=== PATIENT | female | born 1955 | race Caucasian/White ===

== ENCOUNTER 2024-03-26 11:51 | Outpatient (CLI) | payer MEDICARE | END 2024-03-26 11:52 | disposition home or self-care (01) | LOC: CSHMAMMO 11:51 | PROVIDERS: ATTEND Student in an Organized Health Care Education/Training Program | DX: Z12.31 Encounter for screening mammogram for malignant neoplasm of breast (principal); Z80.3 Family history of malignant neoplasm of breast; Z85.3 Personal history of malignant neoplasm of breast; Z98.890 Other specified postprocedural states; Z91.89 Other specified personal risk factors, not elsewhere classified | CPT/HCPCS: 77063; 77067 ==

== ENCOUNTER 2024-03-29 07:30 | Outpatient (CLI) | payer MEDICARE | END 2024-03-29 07:31 | disposition home or self-care (01) | LOC: CSHMAMMO 07:30 | PROVIDERS: ATTEND Student in an Organized Health Care Education/Training Program | DX: R92.1 Mammographic calcification found on diagnostic imaging of breast (principal) | CPT/HCPCS: 77065; G0279 ==

== ENCOUNTER 2025-04-25 09:12 | Outpatient (CLI) | payer MEDICARE | END 2025-04-25 09:13 | disposition home or self-care (01) | LOC: CSHMAMMO 09:12 | PROVIDERS: ATTEND Specialist | DX: Z08 Encounter for follow-up examination after completed treatment for malignant neoplasm (principal); Z86.000 Personal history of in-situ neoplasm of breast | CPT/HCPCS: 77066; G0279 ==